=== PATIENT | female | born 1960 | race Caucasian/White ===

== ENCOUNTER 2018-12-15 12:17 | Day surgery (SDC) | payer MEDICARE ==
[2018-12-12 15:22] VITALS: BMI 35.7
[2018-12-15 13:40] LABS: #Eosinphils 0.1 thou/uL (0.0-0.7); #Lymphocytes 1.1 thou/uL (1.20-3.40); #Monocytes 0.6 thou/uL (0.11-0.59); #Neutrophils 4.1 thou/uL (1.40-6.50); %Basophils 0.2 % (0.0-1.0); %Eosinophils 2.2 % (0.0-10.0); %Lymphocytes 18.3 % (21.0-51.0); %Monocytes 9.8 % (0.0-10.0); %Neutrophils 69.4 % (42.0-75.0); Hemoglobin 13.6 g/dL (12.0-16.0); Mean Corpuscular HGB CONC 34.2 g/dL (32.0-36.0); Mean Corpuscular Volume 90.6 fL (78.0-98.0); Mean Platelet Volume 7.2 fL (7.4-10.4); Platelet Count 269 thou/uL (130-400); RBC Distribution Width 11.7 % (11.5-14.5); Red Blood Cell (RBC) Count 4.39 mill/uL (4.20-5.40); White Blood Cell (WBC) Count 5.8 thou/uL (4.8-10.8)
[2018-12-15] MEDS ORDERED: Lidocaine 2% PF 5 ML VIAL ONE ×2 (13:51→13:53)
[2018-12-15] MEDS ORDERED: Bupivacaine/Epinephrine 0.25% 30 ML VIAL ONE (13:51)
[2018-12-15 13:54] LABS: Anion Gap 11 mmol/L (10-20); BUN (Urea Nitrogen) 11 mg/dL (9.8-20.1); Calc. Creatinine Clearance 149 mL/min (70-130); Calcium 9.4 mg/dL (7.8-10.44); Carbon Dioxide 29 mmol/L (22-29); Chloride 102 mmol/L (98-107); Estimated GFR-MDRD Greater than 90; Glucose 94 mg/dL (70-105); Potassium 4.2 mmol/L (3.5-5.1); Sodium 138 mmol/L (136-145)
[2018-12-15] MEDS ORDERED: Fentanyl 100 MCG/2 ML VIAL ONE (14:16)
[2018-12-15] MEDS ORDERED: Lidocaine 2% Jelly 5 ML TUBE ONE (14:16)
[2018-12-15] MEDS ORDERED: Lidocaine 1% PF 5 ML VIAL ONE (16:11)
[2018-12-15] MEDS ORDERED: Ondansetron PF 4 MG/2 ML Vial ONE (16:11)
[2018-12-15] MEDS ORDERED: PROPOFOL 200 MG/20 ML VIAL ONE (16:11)
[2018-12-15] MEDS ORDERED: ePHEDrine 50 MG/ML VIAL ONE (16:11)
--- NOTE | 2018-12-16 13:42 | OP ---
DATE OF PROCEDURE: 12/15/2018 PREOPERATIVE DIAGNOSIS: Mediastinal and supraclavicular lymphadenopathy. POSTOPERATIVE DIAGNOSIS: Mediastinal and supraclavicular lymphadenopathy. PROCEDURE PERFORMED: Excisional biopsy of supraclavicular lymphadenopathy, left. ANESTHESIA: General. ESTIMATED BLOOD LOSS: Minimal. COMPLICATIONS: None. FINDINGS: A small portion of lymphatic tissue was sent to Path with touch-prep revealing obvious carcinoma, so adequate specimen was thought to be obtained. DESCRIPTION OF PROCEDURE: The patient was taken to the operating room and laid supine on the operating room table. After general anesthetic was obtained, the bilateral neck and chest were prepped and draped in a sterile fashion. Transverse incision was made above the left clavicle in the supraclavicular area. Dissection was taken down through the platysma muscle. Meticulous dissection was performed medially towards the sternal notch where the thoracic duct was found and excluded from the dissection. There was some lymphatic-appearing material that was not able to be excised as a complete node, but sharply a small portion of this lymphatic tissue was removed. It was sent to Path for touch prep, which revealed it to be an adequate specimen of carcinoma. There was no ongoing bleeding. The wound was irrigated and the platysma was closed using 3-0 Vicryl. Subcutaneous tissue was closed using 3-0 Vicryl. Skin was closed using running 4-0 Monocryl and Dermabond. The patient was sent to Recovery in stable condition. All instrument counts, needle counts, and lap counts were correct. Job ID: [id number]
--- NOTE | 2018-12-16 21:13 | EKG ---
Test Reason : PREOP Blood Pressure : / mmHG Vent. Rate : 063 BPM Atrial Rate : 063 BPM P-R Int : 138 ms QRS Dur : 076 ms QT Int : 414 ms P-R-T Axes : 027 014 013 degrees QTc Int : 423 ms Normal sinus rhythm Normal ECG When compared with ECG of 21-MAY-2014 15:59, No significant change was found Confirmed by HERMILA TOM, SEvin ([id number]) on 12/16/2018 9:13:25 PM Referred By: TACHO Confirmed By:DR. Carmen CLEANING MD
== END 2018-12-15 17:00 | disposition home or self-care (01) ==
LOC: SDC 12:17
PROVIDERS: ATTEND Surgery
PROC: 07B20ZX Excision of Left Neck Lymphatic, Open Approach, Diagnostic (ICD-10-PCS; principal; 2018-12-15)
DX: C96.9 Malignant neoplasm of lymphoid, hematopoietic and related tissue, unspecified (principal); Z79.899 Other long term (current) drug therapy; Z88.2 Allergy status to sulfonamides; Z88.8 Allergy status to other drugs, medicaments and biological substances; Z85.048 Personal history of other malignant neoplasm of rectum, rectosigmoid junction, and anus; Z92.21 Personal history of antineoplastic chemotherapy; Z92.3 Personal history of irradiation
CPT/HCPCS: 36415; 80048; 85025; 88184; 88305; 88341; 88342; 88360; 93005; 93010; J0690; J2001; J2405; J2704; J3010; J3490

== ENCOUNTER 2019-01-07 09:48 | Day surgery (SDC) | payer MEDICARE ==
[2019-01-06 15:27] VITALS: BMI 32.9
[2019-01-07] MEDS ORDERED: Midazolam HCl 2 mg/2 ml Vial ONE (11:09)
[2019-01-07] MEDS ORDERED: Bupivacaine/Epinephrine 0.25% 30 ML VIAL ONE (11:29)
[2019-01-07] MEDS ORDERED: Lidocaine 2% PF 5 ML VIAL ONE (11:29)
[2019-01-07] MEDS ORDERED: Fentanyl 100 MCG/2 ML VIAL ONE (11:55)
--- NOTE | 2019-01-07 13:39 | RAD ---
Exam: Chest one view HISTORY:Status post right-sided Mediport catheter placed Comparison: 05/21/2014 FINDINGS: Cardiac silhouette: Normal Pulmonary vessels: Normal Costophrenic angles: Clear LUNGS: Partial obscuration the right hemidiaphragm likely due to component of atelectasis, aspiration or pneumonia. Right-sided Mediport catheter appears to terminate in the expected region superior vena cava. Pneumothorax: None Osseous abnormalities: None IMPRESSION: 1. Right-sided Mediport catheter, likely terminating in the expected region of the superior vena cava . No pneumothorax 2. Obscuration right hemidiaphragm likely due to atelectasis, aspiration or pneumonia. Continued surv eillance is recommended
[2019-01-07] MEDS ORDERED: PROPOFOL 200 MG/20 ML VIAL ONE (16:08)
[2019-01-07] MEDS ORDERED: Ondansetron PF 4 MG/2 ML Vial ONE (16:08)
--- NOTE | 2019-01-08 13:35 | OP ---
DATE OF PROCEDURE: 01/07/2019 PREOPERATIVE DIAGNOSIS: carcinoma. POSTOPERATIVE DIAGNOSIS: carcinoma. PROCEDURE PERFORMED: 1. Tunnelled central line subcutaneous port (MediPort CT injectable, right IJ). 2. Removal of left tunneled subcutaneous port (MediPort). ANESTHESIA: General. ESTIMATED BLOOD LOSS: Minimal. COMPLICATIONS: None. SPECIMEN: None. DESCRIPTION OF PROCEDURE: The patient was taken to the operating room and laid supine on the operating room table. After general anesthetic was obtained, bilateral neck and chest were prepped and draped in a sterile fashion. Local anesthetic infiltrated over the right internal jugular vein. Internal jugular vein was cannulated using a 22-gauge finder needle, followed by a Seldinger needle. Wire was passed into superior vena cava under fluoro guidance, and a small hayde was made at the wire entrance site. A separate 3 cm incision was made in the right upper chest. Subcutaneous pocket made below the lower incision, tubing for the MediPort tunnelled from the inferior to superior incision, introducer sheath was placed over the wire into the superior vena cava. The dilator and wire were removed. The end of the catheter sewed into the sheath and the sheath was peeled away. The tip of the catheter was at the atriocaval junction. MediPort tubing was cut to fit the MediPort with lower incision. The MediPort was placed in the subcutaneous pocket and sewn to the chest wall using Prolene suture. MediPort flushes and draws blood without difficulty. It was flushed with a heparin flush. The wounds were all irrigated and closed using 3-0 Vicryl, 4-0 Monocryl, and Dermabond. Next, previous incision for the left-sided MediPort is reopened and the MediPort is dissected away from the chest wall using sharp dissection. The MediPort is able to be removed in its entirety. The wound was irrigated and closed using 3-0 Vicryl, 4-0 Monocryl, and Dermabond. The patient was sent to Recovery in stable condition. All instrument counts, needle counts, and lap counts were correct. Job ID: [id number]
== END 2019-01-07 15:00 | disposition home or self-care (01) ==
LOC: SDC 09:48
PROVIDERS: ATTEND Surgery
PROC: 0JPT3WZ Removal of Totally Implantable Vascular Access Device from Trunk Subcutaneous Tissue and Fascia, Percutaneous Approach (ICD-10-PCS; principal; 2019-01-07)
PROC: 02HV33Z Insertion of Infusion Device into Superior Vena Cava, Percutaneous Approach (ICD-10-PCS; 2019-01-07)
DX: C21.0 Malignant neoplasm of anus, unspecified (principal); C77.0 Secondary and unspecified malignant neoplasm of lymph nodes of head, face and neck; Z79.899 Other long term (current) drug therapy; Z88.2 Allergy status to sulfonamides; Z88.8 Allergy status to other drugs, medicaments and biological substances
CPT/HCPCS: 36558; 36590; 71045; C1788; J0690; J1642; J2001; J2250; J2405; J2704; J3010

== ENCOUNTER 2019-03-20 09:43 | Outpatient (CLI) | payer MEDICARE, MEDICAID ==
--- NOTE | 2019-03-20 11:15 | CT ---
EXAM: CT of the chest with contrast HISTORY: Metastatic squamous cell carcinoma COMPARISON: None TECHNIQUE: Multiple contiguous axial images were obtained in a CT the chest with contrast. Coronal re formats were performed. FINDINGS: HEART: Normal in size without focal cardiac abnormality MEDIASTINUM: There are enlarged bilateral mediastinal lymph nodes. A right mediastinal lymph node has a necrotic center and measures 3.7 cm in greatest dimension. This is the largest mediastinal lymph node. LUNGS: Scarring is seen in the right lung base. No focal infiltrates, nodules, or masses. PLEURAL SPACE: No pneumothorax or pleural effusion. CHEST WALL SOFT TISSUES: There is a Mediport with its tip in the superior vena cava. OSSEOUS STRUCTURES: Degenerative changes in the spine. No suspicious osseous lesions. VISUALIZED SUBDIAPHRAGMATIC STRUCTURES: Unremarkable IMPRESSION: Enlarged mediastinal lymph nodes as above
--- NOTE | 2019-03-20 12:33 | CT ---
CT NECK WITH CONTRAST: Multiple axial tomograms obtained through the neck with IV enhancement. INDICATION: Squamous cell metastatic neoplasm of anus. COMPARISON: There are no prior CT neck exams. FINDINGS: Parotid glands, submandibular glands, and thyroid gland appear unremarkable. Nasopharynx unremarkable. Oropharynx and base of tongue unremarkable. Hypopharynx unremarkable. There is asymmetry in the larynx involving the left false cord region. There is also slight asymmetr y at the true cord on the left. This should b further evaluated by ENT with direct evaluation to rul e out mucosal nodule at this location. Furs Salesperson space, parapharyngeal space, and retropharyngeal space unremarkable. Carotid space unremarkable. Review of lymph node levels shows nonspecific level I submandibular nodes. Level II jugulodigastric nodes are nonspecific bilaterally measuring up to 1.2 cm on the right. No significant level III node s. There is pathologic adenopathy at level 4 on the left in the supraclavicular region. There is a larg e area of adenopathy with necrotic center measuring up to 3.3 cm. There is also adenopathy in the anterior mediastinum. See dedicated CT chest for further evaluation of the mediastinal adenopathy. Paranasal sinuses and mastoids are clear. IMPRESSION: 1. Soft tissue asymmetry in the larynx involving the left false and true vocal cords. Recommend dir ect evaluation by ENT to rule out mucosal mass/nodule at this location. 2. Pathologic adenopathy in the left supraclavicular region and evidence of pathologic adenopathy in the upper mediastinum. POS: [facility]
== END 2019-03-20 09:44 | disposition home or self-care (01) ==
LOC: SCSCT 09:43
PROVIDERS: ATTEND Internal Medicine Hematology & Oncology
DX: C21.1 Malignant neoplasm of anal canal (principal); R91.8 Other nonspecific abnormal finding of lung field; R59.0 Localized enlarged lymph nodes
CPT/HCPCS: 70491; 71260

== ENCOUNTER 2019-04-24 02:23 | Emergency (ER) | payer MEDICARE, MEDICAID ==
[2019-04-24] MEDS ORDERED: Ondansetron ODT 4 MG TAB ONE (02:55)
== END 2019-04-24 02:55 | disposition home or self-care (01) ==
LOC: ERS 02:23
DX: T82.524A Displacement of infusion catheter, initial encounter (principal); C78.5 Secondary malignant neoplasm of large intestine and rectum
CPT/HCPCS: 99282; Q0162

== ENCOUNTER 2019-06-12 08:30 | Outpatient (CLI) | payer MEDICARE, MEDICAID ==
--- NOTE | 2019-06-12 13:04 | CT ---
EXAM: CT chest neck,, abdomen, and pelvis with IV contrast: HISTORY: Metastatic squamous cell carcinoma. Malignant neoplasm. COMPARISON: CT neck and chest on 03/20/[address] abdomen and pelvis on 12/13/2014. FINDINGS: CT NECK: The bilateral submandibular and parotid glands have a normal CT appearance. A punctate calcification is seen in the left lobe of the thyroid gland. The thyroid gland otherwise has a normal CT appearance. The parapharyngeal, prevertebral, and carotid spaces have a normal appearance. No enlarged lymph nodes are seen within the neck bilaterally. As noted on the prior exam, there is medialization of the left true vocal cord. The right true vocal cord demonstrates mild asymmetric increased density compared to the contralateral left side, but this asymmetry is probably secondary to medialization of the left true cord. The visualized paranasal sinuses and mastoid air cells are clear. No lytic or sclerotic osseous lesion is seen. CT THORAX: Lungs: There is stable mild scarring in the inferolateral right upper lobe. There is a stable pulmona ry nodule in the right upper lobe (image 21, series 3). The lungs are otherwise clear, no additional pulmonary nodule or consolidation is seen. Pleura: No pleural effusion. Lymph nodes: Mediastinal lymphadenopathy as well as left infraclavicular lymphadenopathy is again pre sent. The mass in the left infraclavicular region likely represents conglomeration of lymphadenopathy. Measurements on the prior study were 4.4 cm transverse x 3.1 cm AP, and on today's e xamination a measurement of 4.4 cm x transverse 4.2 cm AP is obtained. The AP dimension does measure larger in size, but this may be attributable to slice selection. Large necrotic the right paratracheal lymph node is again seen which measures 4.4 cm transverse by 3 cm AP with previous measurement of 4.1 cm transverse x3 cm AP. The largest lymph node in the prevascular space on the left which extends medial and superior to the aortic arch is again seen. Lar gest measurement is 3.9 cm AP x2.1 cm transverse with previous measurements similar to this exam. There is a large lymph node seen in a right posterolateral paratracheal region which may represent an additional lymph node but does abut the larger right paratracheal lymph node. This lymph node measures 2.1 cm in transverse dimension which is stable in size from prior study. Chest wall: Right internal jugular vein Mediport catheter remains in place. CT ABDOMEN AND PELVIS: Liver: Within normal limits. Gallbladder: Within normal limits. \ Pancreas: Within normal limits. Spleen: Within normal limits. Adrenal glands: Within normal limits. Kidneys: There is mild cortical scarring involving the lateral aspect midportion right kidney. The ki dneys otherwise demonstrate a normal CT appearance. Urinary Bladder: The urinary bladder is unremarkable. Reproductive organs: There is evidence of hysterectomy. There is a 2.1 cm low-density area seen centr ally within the vaginal cuff of uncertain etiology. This was not present on study in 2015. Bowel: Normal in caliber. Adenopathy:No lymphadenopathy within the abdomen or pelvis. Peritoneum: No free fluid or fluid collection is seen. No free intraperitoneal gas is identified. Abdominal wall: No abnormalities seen. Osseous structures: No suspicious lytic or sclerotic osseous lesions are identified. Degenerative sean nges are seen in the spine. IMPRESSION: 1. Presumed hysterectomy with low-density collection seen within the region of the vaginal cuff. Exac t etiology for this structure is uncertain. Direct visualization is suggested. 2. Overall stable infraclavicular and mediastinal lymphadenopathy. 3. Medialization of the left true vocal cord which is a stable finding. 4. Stable subcentimeter right upper lobe pulmonary nodule with stable mild scarring in the right uppe r lobe.
== END 2019-06-12 08:31 | disposition home or self-care (01) ==
LOC: SCSCT 08:30
PROVIDERS: ATTEND Internal Medicine Hematology & Oncology
DX: C21.1 Malignant neoplasm of anal canal (principal); R59.0 Localized enlarged lymph nodes; R91.1 Solitary pulmonary nodule; J98.4 Other disorders of lung
CPT/HCPCS: 70490; 71260; 74177

== ENCOUNTER 2019-06-30 15:53 | Emergency (ER) | payer MEDICARE, MEDICAID ==
[2019-06-30 16:38] LABS: #Eosinphils 0.1 thou/uL (0.0-0.7); #Lymphocytes 0.7 thou/uL (1.20-3.40); #Neutrophils 7.7 thou/uL (1.40-6.50); %Basophils 0.2 % (0.0-1.0); %Lymphocytes 7.4 % (21.0-51.0); %Monocytes 10.4 % (0.0-10.0); %Neutrophils 80.9 % (42.0-75.0); Hemoglobin 10.9 g/dL (12.0-16.0); Mean Corpuscular HGB CONC 36.3 g/dL (32.0-36.0); Mean Corpuscular Hemoglobin 33.3 pg (27.0-31.0); Mean Corpuscular Volume 91.8 fL (78.0-98.0); Mean Platelet Volume 7.2 fL (7.4-10.4); Platelet Count 224 thou/uL (130-400); Red Blood Cell (RBC) Count 3.26 mill/uL (4.20-5.40); White Blood Cell (WBC) Count 9.5 thou/uL (4.8-10.8)
[2019-06-30] MEDS ORDERED: Morphine 4 MG/ML VIAL ONE ×2 (16:52→18:35)
[2019-06-30] MEDS ORDERED: Ondansetron PF 4 MG/2 ML Vial ONE (16:52)
[2019-06-30 17:00] LABS: ALT (SGPT) 29 U/L (8-55); AST (SGOT) 28 U/L (5-34); Albumin 4.3 g/dL (3.5-5.0); Alkaline Phosphatase 126 U/L (40-110); Anion Gap 17 mmol/L (10-20); BUN (Urea Nitrogen) 17 mg/dL (9.8-20.1); Bilirubin, Total 0.8 mg/dL (0.2-1.2); Calc. Creatinine Clearance 0 mL/min (70-130); Carbon Dioxide 30 mmol/L (22-29); Chloride 95 mmol/L (98-107); Estimated GFR-MDRD 76; Globulin 2.8 g/dL (2.4-3.5); Glucose 126 mg/dL (70-105); Potassium 3.3 mmol/L (3.5-5.1); Protein, Total 7.1 g/dL (6.0-8.3); Sodium 139 mmol/L (136-145)
[2019-06-30] MEDS ORDERED: Fentanyl 100 MCG/2 ML VIAL ONE (17:34)
[2019-06-30] MEDS ORDERED: Promethazine HCl 25 MG/ML VIAL ONE (18:35)
== END 2019-06-30 20:00 | disposition home or self-care (01) ==
LOC: ERS 15:53
DX: E86.0 Dehydration (principal); R11.2 Nausea with vomiting, unspecified; I48.91 Unspecified atrial fibrillation; I10 Essential (primary) hypertension; Z79.899 Other long term (current) drug therapy
CPT/HCPCS: 36415; 80053; 85025; 96361; 96365; 96375; J2270; J2405; J2550; J3010

== ENCOUNTER 2019-12-21 09:33 | Outpatient (CLI) | payer MEDICARE ==
--- NOTE | 2019-12-21 12:46 | CT ---
CT CHEST WITH IV CONTRAST: INDICATION: Rectal cancer. Metastatic squamous cell carcinoma. Upper lobe pulmonary nodule. COMPARISON: Comparison is made to chest CT 06/12/2019 and 03/20/2019. FINDINGS: There are new bilateral perihilar infiltrates with bilateral perihilar air bronchograms and consolida tion indicating bilateral perihilar pneumonia which has occurred since the prior study. The stranding and volume loss in the right upper lobe and the tiny nodules in the right upper lobe de scribed on the prior exam are not readily apparent today. The pleural-based scarring in the right lower lung peripherally has been described previously and is stable. There is mild pleural thickening posterior right mid chest is seen today. Some of this may represent a small amount of loculated fluid. No free fluid in the right chest is seen. The mediastinal and hilar adenopathy described previously has significantly improved. The large path ologic lymph node seen in the mediastinum has significantly decreased in size. Images through the upper abdomen unremarkable. The visualized liver, spleen, and pancreas appear unr emarkable. Osseous structures unremarkable. IMPRESSION: 1. New bilateral perihilar consolidation with bilateral perihilar bronchograms suggesting perihilar pneumonia. This is a new finding. 2. The previously described mediastinal adenopathy shows significant regression. POS: [facility]
== END 2019-12-21 09:34 | disposition home or self-care (01) ==
LOC: SCSCT 09:33
PROVIDERS: ATTEND Internal Medicine Hematology & Oncology
DX: C21.0 Malignant neoplasm of anus, unspecified (principal); R91.1 Solitary pulmonary nodule; R59.0 Localized enlarged lymph nodes; J98.4 Other disorders of lung
CPT/HCPCS: 71260

== ENCOUNTER 2020-01-01 11:48 | Outpatient (CLI) | payer MEDICARE ==
--- NOTE | 2020-01-01 12:18 | RAD ---
CHEST 2 VIEWS: Date: 01/01/2020 HISTORY: Malignant neoplasm of anal canal, shortness of breath. COMPARISON: 12/21/2019 CT. FINDINGS: Again noted is a large right-sided perihilar mass, as well as a left-sided parenchymal process overly ing the region of the aortic arch extending posteriorly. No evidence for peripheral pulmonary nodule demonstrated. IMPRESSION: Bilateral perihilar masses/infiltrates/atelectasis mostly extending posteriorly. Stable appearance fr om CT dock pumper film of 12/21/2019. POS: [facility]
== END 2020-01-01 11:49 | disposition home or self-care (01) ==
LOC: BICRAD 11:48
PROVIDERS: ATTEND Internal Medicine Hematology & Oncology
DX: C21.1 Malignant neoplasm of anal canal (principal)
CPT/HCPCS: 71046

== ENCOUNTER 2020-01-19 12:40 | Outpatient (CLI) | payer MEDICARE ==
--- NOTE | 2020-01-19 13:13 | RAD ---
Chest 2 views HISTORY: Renal carcinoma. Follow-up. COMPARISON: 01/01/2020. FINDINGS: Cardiac silhouette and pulmonary vasculature are unremarkable. Mediastinum is midline with right internal jugular implanted Port-A-Cath in place. Parenchymal scarring within the central aspect of each lung near the respective boubacar is again demonst rated. This extends posteriorly as evidenced on the lateral view. Extension of the scarring to the lateral aspect of the right upper lobe is stable. No new areas of airspace consolidation. No pleural fluid or pneumothorax. IMPRESSION : Bilateral parenchymal lung scarring and other chronic findings are stable. No active cardiopulmonary abnormalities are demonstrated.
== END 2020-01-19 12:41 | disposition home or self-care (01) ==
LOC: BICRAD 12:40
PROVIDERS: ATTEND Internal Medicine Hematology & Oncology
DX: R05 Cough (principal); C21.1 Malignant neoplasm of anal canal; R91.8 Other nonspecific abnormal finding of lung field
CPT/HCPCS: 71046

== ENCOUNTER 2020-04-18 09:03 | Outpatient (CLI) | payer MEDICARE ==
--- NOTE | 2020-04-19 09:12 | CT ---
CT CHEST WITH CONTRAST CLINICAL INDICATION: Malignant neoplasm of anal canal. Metastatic squamous cell carcinoma the anus. Patient is post recent treatment with immunotherapy beginning in August 2019. Follow-up evaluation. COMPARISON: Prior study obtained in [facility] on 12/02/2018 as well as a prior study obtained from [facility] on 12/21/2019 FINDINGS: Aorta: The aorta is normal in caliber without evidence of an aortic dissection. Lungs: Again noted are the bilateral perihilar areas of consolidation more prominent on the right, an d findings may be minimally improved on the right but not significant changed from the prior exam on 12/21/2019. These bilateral perihilar areas of consolidation may be related to posttreatment changes and posttreatment pneumonitis. The minimal right pleural effusion has improved. The area of scarring in the right lower lobe and right middle lobe is again seen. A small 4 mm nodular density is seen in the medial aspect of the left lower lobe. No additional pulmo nary nodule or mass is visualized. Mediastinum: Soft tissue density in the mediastinum and adjacent to the great vessels is overall zhou lar to the prior study and related to residual lymphadenopathy which was much more prominent on prior study of 12/02/2018. Soft tissue density in the left infraclavicular location is also again seen and overall similar to the prior study and likely related to residual lymphadenopathy. No new enlarged lymph nodes are seen. A right internal jugular vein Mediport catheter remains in place. Thyroid gland: Normal CT appearance. Osseous structures: There is a focal area of sclerosis seen in the left anterolateral fourth rib. Thi s was not seen on prior study. Exact etiology is uncertain no additional suspicious lytic or sclerotic osseous lesions are seen. Mild degenerative changes are noted in the spine. Chest wall: No abnormality visualized. Upper abdomen: There is mild enlargement of lymph nodes seen in the region of the gastrohepatic ligam ent and just anterior to the abena the diaphragm in the midline. Largest lymph node in this region measures 1.9 cm, and this lymph node previously measured 10 mm. There is a lymph node just superior t o this region measuring 9 mm in short axis dimension. Remainder of the visualized upper abdomen demonstrates a normal CT appearance. IMPRESSION: 1. Persistent bilateral perihilar areas of patchy parenchymal density and consolidation which could b e related to posttreatment pneumonitis. No new area of consolidation is seen. 2. Small nonspecific 5 mm pulmonary nodule medial aspect left lower lobe. 3. Persistent mediastinal lymphadenopathy. The level of the great vessels and in a left infraclavicul ar location. Soft tissue density in these areas is unchanged compared to recent study on 12/21/2019. 4. Interval enlargement of lymph nodes in the region of the gastrohepatic ligament and in the midline just anterior to the abena of the diaphragm. 5. Nonspecific very small sclerotic focus in the left anterolateral fourth rib. Exact etiology is unc ertain. This can be reevaluated on follow-up examination.
== END 2020-04-18 09:04 | disposition home or self-care (01) ==
LOC: MERGE 09:03 → SCSCT 09:03
PROVIDERS: ATTEND Internal Medicine Hematology & Oncology
DX: C21.1 Malignant neoplasm of anal canal (principal); R91.1 Solitary pulmonary nodule; J98.4 Other disorders of lung; R59.0 Localized enlarged lymph nodes; M89.9 Disorder of bone, unspecified
CPT/HCPCS: 71260

== ENCOUNTER 2020-09-13 11:01 | Outpatient (CLI) | payer MEDICARE ==
[2020-09-13] MEDS ORDERED: Iopamidol 370 76% 100 ML VIAL ONE (13:21)
--- NOTE | 2020-09-13 14:39 | CT ---
CT CHEST WITH IV CONTRAST: INDICATION: Malignant neoplasm of anus. Metastatic squamous cell carcinoma. COMPARISON: Comparison is made to CT chest 04/18/2020. FINDINGS: Bilateral perihilar parenchymal opacity with bronchiectasis seen. This was present previously and is consistent with post-radiation change. The findings are more pronounced today. There is a focal density in the posterior left hilar region measuring 1.8 to 2.0 cm which may be due to the post radiation change; however, a soft tissue mass or adenopathy at this location is not compl etely excluded given its more nodular appearance and close followup is recommended. There is a new nodule in the anterior left upper lobe measuring 4-5 mm seen on image 22 axial. Small pleural-based nodule measuring 5 mm seen on image 24. A 5 mm nodule left lower lobe image 54. A 5 mm nodule medial left lower lobe described on prior exam on image 38. New reticulonodular opacity in the posterior left lower lobe with extensive pleural surface image 55. There is stranding and scarring in the right lung with posterior pleural thickening and small effusio n similar to the prior study. Images through the upper abdomen again show adenopathy in the superior abdomen with enlarged lymph no gardenia in the gastrohepatic region measuring up to 2.5 cm. There is an enlarged lymph node in the peria ortic region near the left renal vein which is new from the prior exam and measures 1.5 cm. There is an enhancing mass involving the right kidney which appears new from the prior exam. The caesar chay is not completely imaged on this study; however, this mass is imaged and measures up to 4.4 cm di ameter. The right kidney was incompletely imaged on the prior exam; however, this mass was not appar ent on the images through the upper and mid kidney at that time and is well seen in this region of th e kidney today. This mass is consistent with neoplasm, either primary or metastatic to the right caesar chay. IMPRESSION: 1. Parenchymal opacity in the perihilar regions bilaterally having the appearance of post radiation change. A nodular area in the posterior left hilar region is seen and close followup is recommended to ensure stability. 2. New small nodules in the left lung as described above. 3. Pleural thickening and small effusion on the right with parenchymal scarring on the right similar to the prior exam. 4. A new enhancing mass involving the right kidney consistent with neoplasm. 5. Adenopathy in the upper abdomen has progressed since the prior exam. POS: [facility]
== END 2020-09-13 11:02 | disposition home or self-care (01) ==
LOC: BICCT 11:01
PROVIDERS: ATTEND Internal Medicine Hematology & Oncology
DX: C21.1 Malignant neoplasm of anal canal (principal); R91.8 Other nonspecific abnormal finding of lung field; J90 Pleural effusion, not elsewhere classified; J92.9 Pleural plaque without asbestos; J98.4 Other disorders of lung; N28.89 Other specified disorders of kidney and ureter; R59.0 Localized enlarged lymph nodes
CPT/HCPCS: 71260; Q9967

== ENCOUNTER 2020-12-01 07:59 | Day surgery (SDC) | payer MEDICARE ==
[2020-12-01] MEDS ORDERED: Sodium Chloride 0.9% 20 ML ONE (08:25)
[2020-12-01] MEDS ORDERED: Acetaminophen 500 MG TAB PO SCH (08:30)
[2020-12-01] MEDS ORDERED: diphenhydrAMINE 25 MG CAP PO SCH (08:30)
[2020-12-01 12:48] VITALS: TEMP 97.6
[2020-12-01 14:00] VITALS: BP 114/61
[2020-12-01 16:15] LABS: Anisocytosis SLIGHT = 6-15 cells (100X) (0-5/hpf); Band 1 % (5-11); Eosinophils 1 % (0-10); Hemoglobin 9.4 g/dL (12.0-16.0); Lymphocytes 9 % (21-51); MDiff Complete? YES; Mean Corpuscular HGB CONC 35.6 g/dL (32.0-36.0); Mean Corpuscular Hemoglobin 32.6 pg (27.0-31.0); Mean Corpuscular Volume 91.6 fL (78.0-98.0); Mean Platelet Volume 6.7 fL (7.4-10.4); Monocytes 11 % (0-10); Neutrophil 78 % (42-75); Platelet Count 117 thou/uL (130-400); Platelet Morphology Comment Appears Decreased; Polychromasia SLIGHT = 2-3 cells (100X) (0-2/hpf); RBC Distribution Width 16.1 % (11.5-14.5); Red Blood Cell (RBC) Count 2.87 mill/uL (4.20-5.40); White Blood Cell (WBC) Count 4.5 thou/uL (4.8-10.8)
== END 2020-12-01 14:04 | disposition home or self-care (01) ==
LOC: ONC/OP 07:59
PROVIDERS: ATTEND Internal Medicine Hematology & Oncology
PROC: 30233N1 Transfusion of Nonautologous Red Blood Cells into Peripheral Vein, Percutaneous Approach (ICD-10-PCS; principal; 2020-12-01)
DX: D64.9 Anemia, unspecified (principal); Z88.2 Allergy status to sulfonamides; Z88.8 Allergy status to other drugs, medicaments and biological substances
CPT/HCPCS: 36430; 85025; 86850; 86900; 86901; J1642; P9016; Q0163

== ENCOUNTER → 2021-02-02 | Day surgery (SDC) | payer MEDICARE ==
[~2021-02-02] MED LIST: Acetaminophen 500 MG TAB PO PRN; Sodium Chloride 0.9% 20 ML ONE; Sodium Chloride 0.9% 500 ML IV SCH; diphenhydrAMINE 25 MG CAP PO PRN
[2021-02-02 14:16] VITALS: BP 111/65; TEMP 97.8
== END ==
LOC: ONC/OP 08:57
PROVIDERS: ATTEND Internal Medicine Hematology & Oncology
PROC: 30233N1 Transfusion of Nonautologous Red Blood Cells into Peripheral Vein, Percutaneous Approach (ICD-10-PCS; principal; 2021-02-02)
DX: D64.9 Anemia, unspecified (principal); D69.6 Thrombocytopenia, unspecified; Z88.2 Allergy status to sulfonamides; Z88.8 Allergy status to other drugs, medicaments and biological substances
CPT/HCPCS: 36430; 86850; 86900; 86901; 96365; J1642; J3480; J7050; P9016; Q0163